=== PATIENT | male | born 1970 | race Caucasian/White ===

== ENCOUNTER 2021-04-16 21:35 | Emergency (ER) | payer MEDICARE, MEDICAID, SELFPAY ==
[2021-04-16] VITALS (13 sets, daily range): BP systolic 131–136; BP diastolic 75–93; PULSE 100–106; RESP 14–24; TEMP 36.2; O2SAT 95–98
--- NOTE | ~2021-04-16 | XR_ITS ---
XR chest 2V DATE: 04/16/2021 22:35 INDICATION: Shortness of breath, dizziness, vomiting. History of smoking TECHNIQUE: PA and lateral views COMPARISON: None FINDINGS: Normal heart size. There is mild aortic arch calcification and some aortic tortuosity. No h ilar or mediastinal enlargement. There is mild discoid atelectasis or scarring in the lower lung zones. No pulmonary infiltrate or consolidation, pleural effusion or pulmonary vascular congestion or pneumo thorax is noted otherwise. IMPRESSION: Mild discoid atelectasis or scarring in the lower lung zones; otherwise no active cardiac pulmonary disease Aortic atherosclerosis Reviewed, dictated and finalized at location A. IMPRESSION: Mild discoid atelectasis or scarring in the lower lung zones; other mancini no active cardiac pulmonary disease Aortic atherosclerosis
--- NOTE | 2021-04-16 22:04 | ECG_ITS ---
Measurements Intervals [place] Rate: 95 P: 37 DE: 158 QRS: 12 QRSD: 108 T: 28 QT: 351 QTc: 443 Interpretive Statements SINUS RHYTHM BASELINE ARTIFACT- II, III, AVF, V1, V3-V6 NORMAL ECG Electronically Signed On 04-17-2021 6:14:59 CDT by Alec Hancock D.O.
--- NOTE | 2021-04-16 22:07 | ED.DIZZY ---
HPI - Dizziness General Chief Complaint: Dizziness Stated Complaint: dizzy, lethargic since 2100 Time Seen by Provider: 04/16/21 21:53 Source: patient and RN notes reviewed Mode of arrival: ambulatory Limitations: no limitations History of Present Illness HPI Narrative: This is a 51 year old male with history of hypertension and bipolar who presents for evaluation of shortness of breath. 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 He also reported fatigue and confusion. His shortness of breath has resolved. He denies chest pain, abdominal pain, headache, diarrhea, or cough. He reports having a similar episode last week in which he had uncontrollable shaking. He did not have shaking with this episode. He is unsure if today was a panic attack. He denies alcohol or drug use, and he has been taking his medications as prescribed. Related Data Allergies Allergy/AdvReac Type Severity Reaction Status Date / Time No Known Allergies Allergy Mild Verified 02/12/10 11:33 Review of Systems Review of Systems: All systems reviewed & are unremarkable except as noted in HPI and below PMFSH Past Medical History Medical History (Updated 04/17/21 @ 00:32 by Kaylynn Montiel MD) Bipolar disorder Hypertension Social History Social History (Updated 04/16/21 @ 22:14 by Kaylynn Montiel MD) Smoking status: Current every day smoker Tobacco type: e-cigarettes/vaping Alcohol intake: never Substance use: never Exam Const: General: no acute distress and alert Orientation/consciousness: patient oriented x3 HENMT: Head: normocephalic and atraumatic Mouth: Yes Normal oral and palatal mucosa present, Yes lip normal, Yes tongue normal, Yes oropharynx normal and Yes moist mucous membranes Throat: posterior oropharynx normal Eyes: Pupils: Equal, round and reactive pupils present EOM: EOMs intact bilaterally Resp: Effort & Inspection: normal respiratory effort and no retractions Auscultation: clear to auscultation bilaterally Cardio: Rate: regular rate Rhythm: regular rhythm Heart sounds: no murmurs GI: GI Palp: Yes Soft to palpation, No Tenderness to palpation present (GI), No Guarding due to palpation present (GI) and No Rebound tenderness present Neuro: General: patient oriented x3, moves all extremities and CN's II-XI intact bilaterally Psych: Mental Status: mental status grossly normal Affect: normal affect Course Reevaluation(s) Reevaluation #1: PAtient has been ambulatory with steady gait. He states he feels much better. His symptoms are likely a panic attack. He understands he will need to follow up with PCP and psychiatrist. Date: 04/17/21 Time: 00:30 Vital Signs Vital signs: Vital Signs Temperature 97.2 F L 04/16/21 21:35 Pulse Rate 102 H 04/16/21 21:35 Respiratory Rate 19 04/16/21 21:35 Blood Pressure 133/86 04/16/21 21:35 Pulse Oximetry 97 04/16/21 21:35 Temperature 97.2 F L 04/16/21 21:35 Pulse Rate 105 H 04/16/21 23:15 Respiratory Rate 14 04/16/21 23:15 Blood Pressure 136/93 H 04/16/21 22:34 Pulse Oximetry 98 04/16/21 23:15 MDM - Dizziness Lab Data Attestation: I reviewed the patient's lab results. Result diagrams: 04/16/21 23:06 04/16/21 23:06 Labs: Lab Results 04/16/21 04/16/21 04/16/21 Range/Units 22:15 23:06 23:06 WBC 11.5 H (4.5-10.0) K/mm3 RBC 4.97 (4.6-6.20) M/mm3 Hgb 14.7 (14.0-18.0) g/dL Hct 43.7 (42.0-52.0) % MCV 87.9 (80-100) fl MCH 29.6 (26-34) pg MCHC 33.6 (32-36) g/dl RDW 13.9 (11.5-14.5) % Plt Count 266 (150-375) k/mm3 MPV 9.6 (7.4-10.4) fl Immature Gran % (Auto) 0.3 (0-0.5) % Neut % (Auto) 79.2 H (45.5-73.1) % Lymph % (Auto) 12.5 L (18.3-44.2) % [place] % (Auto) 7.0 (2.6-8.5) % Eos % (Auto) 0.7 (0-4.4) % Baso % (Auto) 0.3 (0.2-1.2) % Lymph # (Au
[2021-04-16 22:22] LABS: Alveolar/Arterial O2 Gradient 24.5 mmHg; Base Excess ABG 4.7 mEq/l (+/-2.0); Carboxyhemoglobin 1.3 % THb (0-2.0); Fractional Inspired Oxygen 21 %; HCO3 ABG 30.1 mEq/l (22.0-26.0); Methemoglobin ABG 0.4 %THb (0-1.5); Modified Allen's Test Pass; Oxygen Content ABG 19.3 %vol (16.0-22.0); PO2 ABG 68.9 mmHg (80.0-100.0); PO2 FiO2 Ratio Arterial Blood 3.28 %; Reduced Hemoglobin 6.3 %THb (0-5.0); Site Drawn RIGHT RADIAL; Total Hemoglobin 14.9 g/dL (12.0-18.0); pH ABG 7.424 (7.350-7.450)
[2021-04-16 22:23] LABS: Device ROOM AIR
[2021-04-16 23:15] LABS: Basophils Percent Auto 0.3 % (0.2-1.2); Eosinophils Absolute Auto 0.1 K/mm3 (0-0.3); Eosinophils Percent Auto 0.7 % (0-4.4); Hematocrit 43.7 % (42.0-52.0); Hemoglobin 14.7 g/dL (14.0-18.0); Immature Granulocyte Absolute 0.04 K/mm3 (0.00-0.031); Immature Granulocyte Percent A 0.3 % (0-0.5); Lymphocytes Absolute Auto 1.44 K/mm3 (0.9-3.2); Lymphocytes Percent Auto 12.5 % (18.3-44.2); Mean Corpuscular HGB Conc 33.6 g/dl (32-36); Mean Corpuscular Hemoglobin 29.6 pg (26-34); Mean Corpuscular Volume 87.9 fl (80-100); Mean Platelet Volume 9.6 fl (7.4-10.4); Monocytes Absolute Auto 0.8 K/mm3 (0.1-0.6); Neutrophils Absolute Auto 9.1 K/mm3 (1.3-6.7); Neutrophils Percent Auto 79.2 % (45.5-73.1); Platelet Count Result 266 k/mm3 (150-375); Red Blood Count 4.97 M/mm3 (4.6-6.20); Red Cell Distribution Width 13.9 % (11.5-14.5); White Blood Count 11.5 K/mm3 (4.5-10.0)
[2021-04-16 23:26] LABS: Ethanol < 10 mg/dL (<10)
[2021-04-16] MEDS: ONDANSETRON INJ 4 MG/2 ML VIAL IV PUSH (23:26)
[2021-04-16] MEDS: SODIUM CHLORIDE 0.9% IV 1,000 ML 999 ML IV CONT (23:26)
[2021-04-16 23:27] LABS: Alanine Aminotransferase 26 U/L (4-50); Albumin Level 4.4 g/dL (3.5-5.1); Alkaline Phosphatase 60 U/L (38-126); Anion Gap 3 mmol/L (8-16); Aspartate Amino Transferase 35 U/L (17-59); Bilirubin,Total 0.6 mg/dL (0.2-1.3); Blood Urea Nitrogen 19 mg/dL (9-20); Calcium 9.3 mg/dL (8.4-10.2); Carbon Dioxide 37 mmol/L (22-30); Chloride 97 mmol/L (98-107); Estimated Glomerular Filt Rate > 60; Glucose 98 mg/dL (65-110); Magnesium 2.1 mg/dL (1.6-2.3); Potassium 4.4 mmol/L (3.4-5.0); Sodium 137 mmol/L (137-145)
[2021-04-16 23:28] LABS: Prothrombin Time 13.2 Seconds (11.1-14.7)
[2021-04-16 23:29] LABS: Partial Thromboplastin Time 26.4 SECONDS (22.3-36.8)
[2021-04-16 23:31] LABS: D Dimer 0.37 ug/mL (<0.48)
[2021-04-17 00:13] LABS: Add Urine Microscopic? YES; Appearance Urine Cloudy (Clear); Bacteria Urine Trace /hpf; Bilirubin Urine Negative (Negative); Blood Urine Negative (Negative); Color Urine Yellow (Yellow); Glucose Urine UA Negative (Negative); Ketones Urine Negative (Negative); Leukocyte Esterase Ur Negative LEU/UL (Negative); Mucus Urine Rare /lpf; Nitrate Urine Negative (Negative); Protein Urine 1+ mg/dL (Negative); Specific Grav Ur 1.025 (1.001-1.035); Squamous Epithelial Cell Urine Occasional /hpf (Few); WBC Urine 0-3 /hpf
[2021-04-17 00:25] LABS: Amphetamine Screen Urine Negative (Negative); Barbiturate Screen Urine Negative (Negative); Benzodiazepines Screen Urine Negative (Negative); Cannabinoid Screen Urine Positive (Negative); Cocaine Screen Urine Negative (Negative); Methadone Screen Urine Negative (Negative); Opiate Screen Urine Negative (Negative); Phencyclidine Screen Urine Negative (Negative)
[2021-04-17 00:45] VITALS: BP 121/74; PULSE 78; RESP 16; O2SAT 99
== END 2021-04-17 00:46 | disposition home or self-care (01) ==
PROVIDERS: Emergency Provider General Practice
DX: F41.9 Anxiety disorder, unspecified (principal); R06.00 Dyspnea, unspecified; R11.2 Nausea with vomiting, unspecified; F31.9 Bipolar disorder, unspecified; F17.290 Nicotine dependence, other tobacco product, uncomplicated; I70.0 Atherosclerosis of aorta; Z79.899 Other long term (current) drug therapy
CPT/HCPCS: 36415; 36600; 71046; 80053; 80307; 81001; 82375; 82805; 83050; 83735; 85025; 85380; 85610; 85730; 93005; 96361; 96374; 99284; J2405; J7030